=== PATIENT | female | born 1970 | race Caucasian/White ===

== ENCOUNTER 2018-11-10 15:03 | Inpatient (IN) | payer SELFPAY ==
[2018-11-10] VITALS (10 sets, daily range): BP systolic 108–143; BP diastolic 78–129
[~2018-11-10] VITALS: Ht 149.9 cm; Wt 87.2 kg
[~2018-11-10 15:03] MED LIST: ZOCOR
--- NOTE | 2018-11-10 15:12 | NUR ---
DR THOMPSON AT BEDSIDE FOR PATIENT EVAL. PAIENT TACHYCARDIC,TACHYPENIC, ORTHOPENIC, PATIENT PANTING,RESP RAPID,IRREGULAR AND LABORED. SKIN PALE AND DRY.
[2018-11-10] MEDS ORDERED: SODIUM CHLORIDE 0.9% 1000ML 1,000 ML IV STA ×2 (15:20→21:08)
[2018-11-10] MEDS ORDERED: ALBUTEROL/IPRATROPIUM 3 ML NEB ONE (15:25)
[2018-11-10] MEDS: ALBUTEROL SULF 0.083% NEB SOLN 3 ML NEB NEB NR ×2 (15:28→16:03)
[2018-11-10] MEDS ORDERED: ALBUTEROL/IPRATROPIUM 3 ML NEB NEB ONE (15:30)
[2018-11-10] MEDS ORDERED: MAGNESIUM SULFATE 2GM/50ML 50 ML IV ONE (15:30)
[2018-11-10 15:59] LABS: BASOPHILS # (AUTO) 0.1 (0.0-0.1); BASOPHILS % 0.6 % (0.0-1.0); EOSINOPHILS # (AUTO) 0.4 (0.0-0.4); HEMATOCRIT 40.2 % (34.2-44.1); HEMOGLOBIN 13.8 g/dL (12.0-16.0); LYMPHOCYTES # (AUTO) 1.9 (1.0-3.2); LYMPHOCYTES % 10.9 % (18.0-39.1); MEAN CORPUSCULAR HEMOGLOBIN 31.5 pg (28-32); MEAN CORPUSCULAR HGB CONC 34.3 g/dL (31-35); MEAN CORPUSCULAR VOLUME 91.8 fL (81-99); MONOCYTES # (AUTO) 0.5 (0.2-0.8); MONOCYTES % 2.6 % (4.4-11.3); NEUTROPHILS # (AUTO) 14.7 (2.1-6.9); NEUTROPHILS % 83.4 % (38.7-80.0); PLATELET COUNT 294 x10e3/uL (140-360); RED BLOOD COUNT 4.38 x10e6/uL (3.6-5.1); RED CELL DISTRIBUTION WIDTH 13.9 % (11.7-14.4)
[2018-11-10] MEDS ORDERED: LORAZEPAM INJ 2 MG/ML VIAL IV ONE ×2 (16:00→17:45)
[2018-11-10 16:16] LABS: ANION GAP 16.8 mmol/L (8-16); BLOOD UREA NITROGEN 11 mg/dL (7-26); BUN/CREATININE RATIO 11 (6-25); CALCIUM 9.4 mg/dL (8.4-10.2); CARBON DIOXIDE 20 mmol/L (22-29); CHLORIDE 105 mmol/L (98-107); CREATINE KINASE 345 IU/L (29-168); CREATININE, SERUM 0.96 mg/dL (0.57-1.11); EST GLOMERULAR FILTRATION RATE > 60 ML/MIN (60-); GLUCOSE 147 mg/dL (74-118); POTASSIUM 3.8 mmol/L (3.5-5.1); SODIUM 138 mmol/L (136-145)
--- NOTE | 2018-11-10 16:37 | NUR ---
PER WEAN PT OFF NRB AND PLACE PT ON NC 2 LPM; PT PLACED ON NC 2 LPM WITH NO ADVERSE REACTIONS
--- NOTE | 2018-11-10 16:53 | Diagnostic Imaging Report ---
A single frontal view of the chest. HISTORY: SOB, difficulty breathing COMPARISON: None available. DISCUSSION: Portable technique, limits sensitivity of the exam. Overlying monitoring leads. Tubes/Lines: None Lungs and pleura: Small opacities project at the periphery of the left lung base and the right infrahilar region. No definite pleural effusion or pneumothorax is identified. Heart and mediastinum: The cardiomediastinal silhouette appears unremarkable. Bones and soft tissues: Appear unremarkable, given this limited exam. IMPRESSION: 1. Bibasilar opacities, considerations include atelectasis, scarring, multifocal pneumonia, and/or aspiration in the appropriate settings. 2. Recommend short term follow up routine PA and lateral chest radiographs, in 6-8 weeks, to evaluate for resolution. Signed by: Dr. Oz Medrano D.O., M.M.M. on 11/10/2018 4:49 PM
[2018-11-10] MEDS ORDERED: AZITHROMYCIN 500MG/NS 250 ML 250 ML IV STA (17:02)
[2018-11-10] MEDS ORDERED: CEFTRIAXONE SOD 1 GM/NS 50 ML 50 ML IV SCH (17:15)
[2018-11-10] MEDS ORDERED: TERBUTALINE SULFATE 1 MG/ML VIAL SC NR (17:30)
[2018-11-10] MEDS: SODIUM CHLORIDE 0.9% 1000ML 1,000 ML IV SCH ×3 (17:35→21:54)
[2018-11-10] MEDS ORDERED: KETOROLAC TROMETHAMINE 30 MG/ML VIAL IV NR (17:45)
[2018-11-10] MEDS ORDERED: LORAZEPAM INJ 2 MG/ML VIAL IV NR (18:00)
[2018-11-10] MEDS ORDERED: AZITHROMYCIN 500MG/NS 250 ML 250 ML IV SCH (18:30)
[2018-11-10] MEDS: ALBUTEROL SULF 0.083% NEB SOLN 3 ML NEB NEB SCH ×2 (19:00→23:45)
[2018-11-10] MEDS: IPRATROPIUM BROMIDE 0.02% 2.5 ML NEB NEB SCH ×2 (19:00→23:45)
[2018-11-10 19:04] LABS: ABG HCO3 16 mmol/L (23-28); ABG PCO2 38 mmHg (41-51); ABG PH 7.23 (7.31-7.41); ABG PO2 111 mmHg (80-105)
[2018-11-10] MEDS: LORAZEPAM INJ 2 MG/ML VIAL IV PRN ×2 (19:19→20:40)
--- NOTE | 2018-11-10 19:23 | NUR ---
DR RIDLEY, DR CRAIG AND DR THOMPSON AT PT BEDSIDE
--- NOTE | 2018-11-10 19:24 | NUR ---
PER PATIENT SHE IS CLAUSTERPHOBIC. SHE IS JERKING OFF BIPAP AND TRYING TO JUMP OUT OF THE BED, GASPING FOR AIR. ORDERS FOR ATIVAN 1MG IV RECEIVED AND GIVEN. PATIENT SKIN TURNING PURPLE/BLUE ON CHEST. DR. CRAIG AND DR. RIDLEY AT BEDSIDE SPEAKING WITH FAMILY REGARDING INTUBATION
--- NOTE | 2018-11-10 19:27 | NUR ---
FAMILY TOGETHER WITH DR RIDLEY AND DR CRAIG CAME TO THE DECISION TO INTUBATE PT FOR RESPIRATORY SUPPORT. ETOMIDATE 20MG IV X1 GIVEN AT 193 SUCCINYLCHOLINE 100MG IV X 1 GIVEN AT 1932 TO RT AC 20G 7.5 SHILEY 24@ LIP IN AT 193. PT TOLERATED WELL DIPROVAN ORDERED FOR SEDATION. STARTED AT 10MCG/KG/HR. PT TRANSPORTED WITH RT ON PORTABLE VENT. PT STABLE NO S/S DISTRESS NOTED. RECEIVING NURSE RANJAN HOFFMANN AT BEDSIDE.
[2018-11-10] MEDS ORDERED: PROPOFOL IV EMULSION 10MG/ML 100 ML ONE (19:40)
[2018-11-10] MEDS ORDERED: SUCCINYLCHOLINE CHLORIDE 20 MG/ML 10ML VIAL IV NR (19:41)
[2018-11-10] MEDS ORDERED: ETOMIDATE 2 MG/ML 10 ML INJ IV STA (19:41)
[2018-11-10] MEDS: PROPOFOL IV EMULSION 10MG/ML 100 ML IV SCH ×2 (19:45→23:55)
--- OUTSIDE RECORDS SUMMARY | 2018-11-10 19:58 | XMS REPORT ---
Author Author [facility] Address Unknown Phone Unavailable Care Team Providers Care Take Off Man Name Role Phone Salazar THOMPSON Unavailable Unavailable Problems This patient has no known problems. Allergies, Adverse Reactions, Alerts This patient has no known allergies or adverse reactions. Medications This patient has no known medications. Results Test Description Test Time Test Comments Text Results Atomic Results Result Comments CHEST SINGLE (PORTABLE) 2018-11-10 16:47:00 [facility] [address] [address] Patient Name: KOFI PINEDA MR #: [id number] : 1970 Age/Sex: 48/F Req #: [id number] Adm Physician: Ordered by: CRISTINE THOMPSON MD Report #: [id number] Location: ER Room/Bed: Procedure: [id number] DX/CHEST SINGLE (PORTABLE) Exam Date: 11/10/18 Exam Time: 1540 REPORT STATUS: Signed A single frontal view of the chest. HISTORY: SOB, difficulty breathing COMPARISON: None available. DISCUSSION: Portable technique, limits sensitivity of the exam. Overlying monitoring leads. Tubes/Lines: None Lungs and pleura: Small opacities project at the periphery of the left lung base and the right infrahilar region. No definite pleural effusion or pneumothorax is identified. Heart and mediastinum: The cardiomediastinal silhouette appears unremarkable. Bones and soft tissues: Appear unremarkable, given this limited exam. IMPRESSION: 1. Bibasilar opacities, considerations include atelectasis, scarring, multifocal pneumonia, and/or aspiration in the appropriate settings. 2. Recommend short term follow up routine PA and lateral chest radiographs, in 6-8 weeks, to evaluate for resolution. Signed by: Dr. Bernardino Medrano D.O., M.M.M. on 11/10/2018 4:49 PM Dictated By: BERNARDINO MEDRANO DO [id number] Transcribed By: ADOLPH on 11/10/181648 COPY TO: CRISTINE THOMPSON MD
--- NOTE | 2018-11-10 20:15 | NUR ---
Received to 190 from ER. Placed on EKG, NBP & pulse ox for monitoring. Orally intubated with 7.5FR ETT secured at 24cm at the lip. Vent settings: Tv 450, FIO2 40%, PRVC 16 and PEEP 5. Very agitated. Sedation: Propofol titrated. NS @ 125ml/hr. Admission history, Initial Physical Assessment & Vaccine history completed.
--- NOTE | 2018-11-10 20:33 | Diagnostic Imaging Report ---
EXAMINATION: CHEST SINGLE (PORTABLE) INDICATION: ^post-intubation ^[id number] ^2004 COMPARISON: 11/10/2018 at 1536 hours FINDINGS: AP view TUBES and LINES: Status post intubation. The tip of endotracheal tube is approximately 2.4 cm above kahlil. LUNGS: Lungs are well inflated. Central vascular congestion and mild interstitial edema. There is a questionable 2.1 cm right base nodular density. PLEURA: No pleural effusion or pneumothorax. HEART AND MEDIASTINUM: The cardiomediastinal silhouette is unremarkable. BONES AND SOFT TISSUES: No acute osseous lesion. Soft tissues are unremarkable. UPPER ABDOMEN: No free air under the diaphragm. IMPRESSION: Status post intubation. Central vascular congestion and mild interstitial edema. Questionable 2.1 cm right base nodular density, which can be further evaluated with nonurgent chest CT. Signed by: Dr. Adrian Yan MD on 11/10/2018 8:30 PM
--- NOTE | 2018-11-10 20:35 | NUR ---
Ativan IV removed from Pixis and given to Tatum Rosenberg RN to administer per MD orders at her discretion.
[2018-11-10] MEDS ORDERED: [UNRECOGNIZED DRUG - REMARK] (20:44)
[2018-11-10] MEDS: CEFEPIME HCL 2 GM/SOD CHL 0.9% 100 ML BAG IV SCH (21:53)
[2018-11-10] MEDS: METHYLPREDNISOLONE SOD SUCC 125 MG/2ML VIAL IV SCH (22:00)
[2018-11-10] MEDS: VANCOMYCIN HCL 1GM/NS 250 ML BAG IV SCH (22:00)
--- NOTE | 2018-11-10 23:47 | History and Physical ---
CHIEF COMPLAINT: Worsening shortness of breath. HISTORY OF PRESENT ILLNESS: This is a 48-year-old white woman, who presents to [facility] with a 2-day history of worsening shortness of breath, cough, and chest congestion. The patient states she actually has been sick for the last 2-3 weeks, but seemed to improve after she finished a 5-day course of oral azithromycin and oral corticosteroids. However, according to the , she became progressively worse starting yesterday. Today in the Emergency Room, the patient was found to have in significant respiratory distress. White blood cell count was 17,500 with 83% segmenters. Blood gas in Emergency Room revealed a pH of 7.23, pCO2 of 38, and pO2 of 111. The patient's serum bicarbonate is 20. Chest x-ray performed in the Emergency Room revealed bibasilar opacities consistent with either atelectasis or multifocal pneumonia. The patient was given nebulized bronchodilators as well as methylprednisolone in the Emergency Room. Her respiratory status did only improve minimally, thus the decision was made to intubate the patient electively. REVIEW OF SYSTEMS: GENERAL: Weight has been stable. No fever or chills. HEENT: No headaches. No visual changes. CARDIOVASCULAR/RESPIRATORY: The patient has had worsening chest congestion and cough for the last 2-3 weeks, but became much worse in last 2 days. Denies any chest pain or tightness. GI: No nausea, vomiting, diarrhea. : No UTI symptoms. NEUROMUSCULAR: No limb weakness or numbness. ALLERGIES: LATEX. FAMILY HISTORY: Noncontributory. SOCIAL HISTORY: This woman is and lives with her . She drinks alcohol socially quite often according to the . She is a tobacco smoker. 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 HOME MEDICATIONS: 1. Simvastatin. 2. Recently completed a 5-day course of azithromycin. 3. Recently completed a 5-day course of oral corticosteroids. PAST MEDICAL HISTORY: 1. Tobacco abuse. 2. Chronic alcohol use. 3. Hyperlipidemia. 4. Mild obesity. SURGICAL HISTORY: section. PHYSICAL EXAMINATION: GENERAL: She is in obvious respiratory distress. She is somnolent, but arousable. VITAL SIGNS: She is breathing 40 breaths a minute, heart rate is 130, blood pressure is 123/93, temperature in the Emergency Room is 98.6, and oxygen saturation is 99% on BiPAP machine. INTEGUMENT: Skin is warm and dry. She has cyanosis on her chest area. She also has what appears to be telangiectases on her anterior chest. HEENT: Anicteric sclerae. Moist mucous membranes. NECK: Supple. No evidence of jugular venous distention. CARDIOVASCULAR: Distant heart sounds. Tachycardic rate and rhythm. LUNGS: The patient has crackles and rhonchi in the bibasilar area. ABDOMEN: Obese, benign. EXTREMITIES: No edema or deformity. NEUROLOGIC: Intact. IMPRESSION: 1. Acute respiratory failure, necessitating mechanical ventilation. 2. Sepsis secondary to bilateral pneumonia. 3. Bilateral pneumonia. 4. Asthma/chronic bronchitis exacerbation. 5. Tobacco abuse. PLAN: 1. Agree with elective endotracheal intubation. 2. Admit to intensive care unit. 3. Consult emt. 4. Continue nebulized bronchodilators and intravenous methylprednisolone. 5. Order blood cultures. 6. Continue intravenous antibiotics in the form of cefepime and vancomycin. I spent 75 minutes in the care of this intensive care unit patient. MD WALTER Wells/SONDRA /[id number] MTDD
[2018-11-11] VITALS (25 sets, daily range): BP systolic 90–130; BP diastolic 65–94
[2018-11-11] MEDS: ALBUTEROL SULF 0.083% NEB SOLN 3 ML NEB NEB SCH ×6 (02:40→22:45)
[2018-11-11] MEDS: LORAZEPAM INJ 2 MG/ML VIAL IV PRN (02:54)
--- NOTE | 2018-11-11 04:47 | NUR ---
OG tube inserted without difficulty. To LIS. Will confirm placement with Chest Xray in morning.
[2018-11-11] MEDS: METHYLPREDNISOLONE SOD SUCC 125 MG/2ML VIAL IV SCH (05:08)
[2018-11-11] MEDS: CEFEPIME HCL 2 GM/SOD CHL 0.9% 100 ML BAG IV SCH ×2 (05:08→14:00)
[2018-11-11] MEDS: SODIUM CHLORIDE 0.9% 1000ML 1,000 ML IV SCH ×3 (05:09→16:37)
[2018-11-11 05:39] LABS: BASOPHILS % 0.1 % (0.0-1.0); HEMOGLOBIN 11.3 g/dL (12.0-16.0); LYMPHOCYTES # (AUTO) 1.2 (1.0-3.2); LYMPHOCYTES % 6.5 % (18.0-39.1); MEAN CORPUSCULAR HEMOGLOBIN 31.7 pg (28-32); MEAN CORPUSCULAR HGB CONC 33.2 g/dL (31-35); MEAN CORPUSCULAR VOLUME 95.2 fL (81-99); MONOCYTES # (AUTO) 0.8 (0.2-0.8); MONOCYTES % 4.7 % (4.4-11.3); NEUTROPHILS # (AUTO) 15.8 (2.1-6.9); NEUTROPHILS % 87.7 % (38.7-80.0); PLATELET COUNT 191 x10e3/uL (140-360); RED BLOOD COUNT 3.57 x10e6/uL (3.6-5.1); RED CELL DISTRIBUTION WIDTH 14.3 % (11.7-14.4)
[2018-11-11 06:03] LABS: ALANINE AMINOTRANSFERASE 14 IU/L (0-55); ALBUMIN 3.3 g/dL (3.5-5.0); ALBUMIN/GLOBULIN RATIO 1.3 (0.8-2.0); ALKALINE PHOSPHATASE 39 IU/L (40-150); ANION GAP 13.3 mmol/L (8-16); BLOOD UREA NITROGEN 10 mg/dL (7-26); BUN/CREATININE RATIO 12 (6-25); CALCIUM 8.5 mg/dL (8.4-10.2); CARBON DIOXIDE 17 mmol/L (22-29); CHLORIDE 112 mmol/L (98-107); CREATININE, SERUM 0.83 mg/dL (0.57-1.11); EST GLOMERULAR FILTRATION RATE > 60 ML/MIN (60-); GLUCOSE 142 mg/dL (74-118); POTASSIUM 4.3 mmol/L (3.5-5.1); SODIUM 138 mmol/L (136-145)
[2018-11-11] MEDS: VANCOMYCIN HCL 1GM/NS 250 ML BAG IV SCH ×2 (06:04→18:08)
[2018-11-11] MEDS: PROPOFOL IV EMULSION 10MG/ML 100 ML IV SCH ×3 (06:36→21:14)
--- NOTE | 2018-11-11 06:52 | Diagnostic Imaging Report ---
EXAMINATION: CHEST SINGLE (PORTABLE) INDICATION: ^BILATERAL PNEUMONIA ^[id number] ^0530 ^Y COMPARISON: 11/10/2018 FINDINGS: AP view TUBES and LINES: Stable endotracheal tube. New nasogastric tube extends beyond the inferior margin of the film. LUNGS: Lungs are well inflated. Decreased previously seen airspace opacities. Unchanged right lower lung field nodular density. PLEURA: No pleural effusion or pneumothorax. HEART AND MEDIASTINUM: The cardiomediastinal silhouette is unremarkable. BONES AND SOFT TISSUES: No acute osseous lesion. Soft tissues are unremarkable. UPPER ABDOMEN: No free air under the diaphragm. IMPRESSION: Decreased previously seen bilateral airspace opacities. Unchanged right lower lung field nodular density. Signed by: Dr. Adrian Yan MD on 11/11/2018 6:49 AM
[2018-11-11] MEDS: IPRATROPIUM BROMIDE 0.02% 2.5 ML NEB NEB SCH ×3 (07:30→19:25)
[2018-11-11] MEDS ORDERED: FENTANYL CITRATE INJ 2,000 MCG in SODIUM CHLORIDE 0.9% 250ML 210 ML IV PRN (09:00)
[2018-11-11 09:21] LABS: ABG HCO3 19 mmol/L (23-28); ABG PCO2 33 mmHg (41-51); ABG PH 7.36 (7.31-7.41); ABG PO2 135 mmHg (80-105)
[2018-11-11] MEDS: FAMOTIDINE 20 MG/2 ML VIAL IV SCH (09:24)
--- NOTE | 2018-11-11 12:00 | NUR ---
Called Dr. Howe to obtain TF order.
--- NOTE | 2018-11-11 12:55 | NUR ---
Nutrition Intervention Note RD Recommendation(s) for Physician: -With propofol at 22.5mL/hr (594kcal/day), rec to initiate continuous TF with Vital HP @10mL/hr, advance as tolerated to 25mL/hr (600kcal). -Rec to increase TF to goal rate of 45mL/hr when propofol is turned down to 10mL/hr -Rec 50mL water flushes q 4hr; additional per MD discretion -Check daily labs, weight, and GI tolerance Plan of Care: RD following, monitoring for tolerance and adequacy, TF rec Nutrition reason for involvement: New tube feeding RD Assessment 11/11 48yo F, who was admitted for SOB. CXR revealed PNA. Pt was discussed during AM rounds. Intubated and ventilated. Propofol at 22.5mL/hr and IVF at 125mL/hr during my visit. 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 Verified height and weight with daughter. Per RN, plan to extubate tomorrow and OGT tube was placed to start feeding today. Called Dr. Howe and received verbal order for tube feeding. Will continue to monitor and follow. Principal Problems/Diagnoses: 1. Acute respiratory failure, necessitating mechanical ventilation. 2. Sepsis secondary to bilateral pneumonia. 3. Bilateral pneumonia. 4. Asthma/chronic bronchitis exacerbation. PMH: 1. Tobacco abuse. 2. Chronic alcohol use. 3. Hyperlipidemia. 4. Mild obesity. GI: OGT present Skin: No pressure wound noted Labs: (11/11) Glucose 142 H Meds: pepcid, propofol, abx, NaCl, abx Ht: 59in Wt: 172lb BMI: 34.7kg/m2 IBW: 98lb Malnutrition Evaluation (11/11/2018) The patient does not meet criteria for a specified degree of malnutrition at this time. Will re-evaluate at follow-up as appropriate. Nutrition Prescription (Diet Order): Vital HP @25mL/hr Estimated Nutritional Needs: Calories: 858 1092kcal(11-14kcal/kg/d) Weight used : CBW Protein: 90 112g(2-2.5g/kg/d) Weight used: IBW Diet Adequacy: Not meeting calorie needs, Not meeting protein needs Diet Education Needs Assessment: Diet education indicated, but patient not appropriate for education at this time. Nutrition Care Level: mod Nutrition Diagnosis: Inadequate oral intake related to current medical status (intubated/ ventilated) as evidenced by pt requiring EN as main source of nutrition. Goal: Patient will meet 75-100% of estimated needs by follow up Progress: N/A Interventions: Composition, Rate, Route, IVF Monitoring/Evaluation: Total energy intake, Total protein intake, Formula/Solution, IVF, Weight change, Labs, Gastric tolerance Signed: Magdalena Kirkland MS, RD, LD
--- NOTE | 2018-11-11 13:57 | Diagnostic Imaging Report ---
CT of the chest, without contrast, 11/11/2018. History: Pneumonia. Comparison: Chest x-ray from earlier today. Technique: Multidetector CT scanning of the chest was performed from the level of the apices to the upper abdomen without contrast. Coronal and sagittal multiplanar reformations were obtained. RADIATION DOSE: Total DLP: 488 mGy*cm Dose modulation, iterative reconstruction, and/or weight based adjustment of the mA/kV was utilized to reduce the radiation dose to as low as reasonably achievable. Discussion: Evaluation is limited without IV contrast. Chest: ET tube is present terminating 2 cm above the kahlil. NG tube terminates within the stomach. The heart, aorta, and pulmonary vessels are normal in size. The thyroid is unremarkable. There is no gross evidence of adenopathy. Patchy consolidative and ground glass pulmonary opacities are present in both upper lobes and right middle lobe. There is no evidence of suspicious mass or pleural effusion. Limited evaluation of the upper abdomen shows normal adrenal glands. Bones and soft tissues: No acute abnormality. IMPRESSION: Patchy bilateral pulmonary opacities suggestive of resolving pneumonia. Signed by: Trip Redding on 11/11/2018 1:54 PM
[2018-11-11] MEDS: METHYLPREDNISOLONE SOD SUCC 40 MG/ML VIAL 1ML IV SCH ×2 (14:00→22:46)
[2018-11-11] MEDS ORDERED: METHYLPREDNISOLONE SOD SUCC 125 MG/2ML VIAL IV SCH (14:00)
--- NOTE | 2018-11-11 16:41 | Consultation ---
DATE OF CONSULTATION: Pulmonary consultation REASON FOR CONSULT: ICU management. HISTORY OF PRESENT ILLNESS: Ms. Sin is a 48-year-old female who presented to the emergency room with a complaint of shortness of breath. The patient has been diagnosed with COPD and was on Z-Oscar and oral corticosteroids per the chart. Currently, I am not able to get any history from the patient as she is sedated. She progressively became short of breath. White cell count jumped to 17,000 with 83% bands. She was short of breath in the emergency room and required elective intubation. Her initial ABG shows pH of 7.23, pCO2 of 38, and PO2 of 111. I have reviewed the chest x-ray films. It is showing a few areas of increased congestions or areas of consolidation, but no clear-cut infiltrate and the repeat x-ray today is showing decrease in the bibasilar opacities. She received vancomycin, Solu-Medrol, and cefepime in the emergency room. REVIEW OF SYSTEMS: Unable to elicit any as the patient is intubated. PAST MEDICAL HISTORY: Hyperlipidemia and obesity. PAST SURGICAL HISTORY: Unknown. FAMILY AND SOCIAL HISTORY: She is . Questionable alcohol use. However, she is a regular smoker. 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 PHYSICAL EXAMINATION: VITAL SIGNS: Temperature 99.1, pulse of 96, blood pressure 114/78, and respiratory rate is 18 to 20. HEENT: Head is atraumatic, normocephalic. NECK: Supple. CHEST: Wheezing bilaterally. HEART: S1, S2 audible. ABDOMEN: Soft, nontender, nondistended. EXTREMITIES: No pedal edema. NEUROLOGIC: Sedated, intubated. LABS: PH of 7.23, pCO2 of 38, and PO2 of 111. Chemistry; sodium 138, potassium 4.3, chloride 112, BUN 10, and creatinine 0.83. Lactic acid when she came in was 41.9 and today is 33.6, still on the higher side. She has not required any vasopressors so far. ASSESSMENT: Ms. Sin is a 48-year-old female came in with shortness of breath and wheezing, question of chronic obstructive pulmonary disease exacerbation versus pneumonia. However, the patient's chest x-ray is improved from yesterday to today after positive-pressure ventilation that can be a contribution from heart failure, however, seems unlikely. PLAN: 1. I agree with the IV antibiotics as ordered by Dr. Yates. We will reduce the dose of Solu-Medrol and check echocardiogram to rule out any cardiac dysfunction. 2. CT chest without contrast. 3. Central line and possibly the patient will drop blood pressure and may get worse if the pneumonia is getting worse. Currently, she is on FiO2 of 40% and oxygenating very well. I will do ABG. 4. Start the patient on DVT prophylaxis and GI prophylaxis. We will start tube feedings. Recheck lactate. Critical care time spent 50 minutes. MD FALGUNI Petersen/SONDRA /[id number]
[2018-11-11] MEDS: ENOXAPARIN SOD INJ 40 MG/0.4 ML SYR SC SCH (17:00)
[2018-11-11] MEDS ORDERED: IOPAMIDOL 370 MG/ML 200 ML INFUS..BTL INJ ONE (17:12)
[2018-11-11] MEDS ORDERED: SODIUM CHLORIDE 0.9% 50ML 50 ML ONE (17:12)
--- NOTE | 2018-11-11 17:41 | Diagnostic Imaging Report ---
Exam: Chest with contrast PE protocol TECHNIQUE: CT scan of the chest WITH intravenous contrast, using PE protocol. The chest was scanned utilizing a multidetector helical scanner from the lung apex through the level of the adrenal glands after the IV administration of 100 cc of . Thin section reconstructions were obtained with special concentration on the pulmonary arteries. Coronal and sagittal reformations were obtained. COMPARISON: Chest CT without dated 11/11/2018 INDICATION: Rule out pulmonary embolism DISCUSSION: Lungs: ET tube is present terminating 2 cm above the kahlil. NG tube terminates within the stomach. The heart, aorta, and pulmonary vessels are normal in size. The thyroid is unremarkable. There is no gross evidence of adenopathy. Patchy consolidative and ground glass pulmonary opacities are present in both upper lobes and right middle lobe. Airways: ET tube tip terminates approximately 2 cm superior to the kahlil. NG tube in the stomach. Pleura: There is no evidence of pleural effusion or pneumothorax. Heart and mediastinum: The heart and the mediastinum are normal. No mediastinal or hilar lymphadenopathy. Abdomen: The visualized parts of the upper abdomen are unremarkable. Bones and soft tissues: No acute bony abnormalities. IMPRESSION: 1. No pulmonary embolism. 2. Stable findings from recent prior chest CT of bilateral patchy pulmonary parenchymal opacities which may represent resolving pneumonia Signed by: Wilian Vera MD on 11/11/2018 5:38 PM
[2018-11-11] MEDS: CEFEPIME 1GM/NS 0.9% 50 ML 50 ML IV SCH (22:46)
[2018-11-12] VITALS (24 sets, daily range): BP systolic 100–163; BP diastolic 68–122
[2018-11-12] MEDS: PROPOFOL IV EMULSION 10MG/ML 100 ML IV SCH ×3 (00:52→04:58)
[2018-11-12] MEDS: ALBUTEROL SULF 0.083% NEB SOLN 3 ML NEB NEB SCH ×6 (03:02→23:50)
[2018-11-12] MEDS: IPRATROPIUM BROMIDE 0.02% 2.5 ML NEB NEB SCH ×5 (03:02→23:50)
[2018-11-12] MEDS: CEFEPIME 1GM/NS 0.9% 50 ML 50 ML IV SCH ×3 (04:58→21:40)
[2018-11-12] MEDS: METHYLPREDNISOLONE SOD SUCC 40 MG/ML VIAL 1ML IV SCH ×3 (04:58→21:40)
[2018-11-12] MEDS: VANCOMYCIN HCL 1GM/NS 250 ML BAG IV SCH ×2 (05:41→18:30)
[2018-11-12] MEDS: SODIUM CHLORIDE 0.9% 1000ML 1,000 ML IV SCH (08:04)
[2018-11-12 08:35] LABS: BASOPHILS % 0.1 % (0.0-1.0); HEMATOCRIT 35.1 % (34.2-44.1); HEMOGLOBIN 11.7 g/dL (12.0-16.0); LYMPHOCYTES # (AUTO) 1.8 (1.0-3.2); LYMPHOCYTES % 8.8 % (18.0-39.1); MEAN CORPUSCULAR HEMOGLOBIN 32.1 pg (28-32); MEAN CORPUSCULAR HGB CONC 33.3 g/dL (31-35); MEAN CORPUSCULAR VOLUME 96.4 fL (81-99); MONOCYTES # (AUTO) 1.2 (0.2-0.8); MONOCYTES % 5.7 % (4.4-11.3); NEUTROPHILS # (AUTO) 17.3 (2.1-6.9); NEUTROPHILS % 83.4 % (38.7-80.0); PLATELET COUNT 202 x10e3/uL (140-360); RED BLOOD COUNT 3.64 x10e6/uL (3.6-5.1); RED CELL DISTRIBUTION WIDTH 14.6 % (11.7-14.4)
[2018-11-12 08:47] LABS: ANION GAP 10.4 mmol/L (8-16); BLOOD UREA NITROGEN 19 mg/dL (7-26); BUN/CREATININE RATIO 23 (6-25); CALCIUM 8.6 mg/dL (8.4-10.2); CARBON DIOXIDE 20 mmol/L (22-29); CHLORIDE 110 mmol/L (98-107); CREATININE, SERUM 0.81 mg/dL (0.57-1.11); EST GLOMERULAR FILTRATION RATE > 60 ML/MIN (60-); GLUCOSE 123 mg/dL (74-118); POTASSIUM 4.4 mmol/L (3.5-5.1); SODIUM 136 mmol/L (136-145)
[2018-11-12] MEDS: FAMOTIDINE 20 MG/2 ML VIAL IV SCH (09:00)
[2018-11-12] MEDS ORDERED: DEXMEDETOMIDINE HCL 200 MCG in SODIUM CHLORIDE 0.9% 50ML 48 ML IV PRN (09:15)
[2018-11-12] MEDS: CLONIDINE HCL 0.1 MG/24 HR 1 EA PATCH TOP SCH (09:30)
--- NOTE | 2018-11-12 10:12 | Diagnostic Imaging Report ---
EXAMINATION: CHEST SINGLE (PORTABLE) INDICATION: Follow-up pneumonia. COMPARISON: CT chest 11/08/2018 and chest radiograph 11/11/2018. FINDINGS: TUBES and LINES: ET tube terminates 4.5 cm above the kahlil. An enteric tube courses into the stomach, the tip is not seen. LUNGS: Lungs are moderately inflated. Mild bilateral perihilar opacities. No new consolidation. PLEURA: No pleural effusion or pneumothorax. HEART AND MEDIASTINUM: The cardiomediastinal silhouette is unremarkable. BONES AND SOFT TISSUES: No acute osseous abnormality. UPPER ABDOMEN: No free air under the diaphragm. IMPRESSION: Mild patchy bilateral opacities, consistent with pneumonia noted on prior studies. No new consolidation. Lines and tubes as above. No evidence of pneumothorax. Signed by: Dr. Maribel Hampton MD on 11/12/2018 10:09 AM
[2018-11-12] MEDS ORDERED: FUROSEMIDE INJ 10 MG/ML 4 ML VIAL IV SCH (10:30)
[2018-11-12 11:01] LABS: ABG HCO3 20 mmol/L (23-28); ABG PCO2 38 mmHg (41-51); ABG PH 7.33 (7.31-7.41); ABG PO2 102 mmHg (80-105)
[2018-11-12] MEDS: ENOXAPARIN SOD INJ 40 MG/0.4 ML SYR SC SCH (17:56)
[2018-11-12] MEDS: ACETAMINOPHEN 325 MG TAB PO PRN (20:41)
[2018-11-13] VITALS (25 sets, daily range): BP systolic 119–147; BP diastolic 59–97
[2018-11-13] MEDS: ALBUTEROL SULF 0.083% NEB SOLN 3 ML NEB NEB SCH ×6 (00:17→19:34)
[2018-11-13] MEDS: SODIUM CHLORIDE 0.9% 1000ML 1,000 ML IV SCH (00:57)
[2018-11-13] MEDS: METHYLPREDNISOLONE SOD SUCC 40 MG/ML VIAL 1ML IV SCH ×3 (05:17→22:18)
[2018-11-13] MEDS: CEFEPIME 1GM/NS 0.9% 50 ML 50 ML IV SCH ×3 (05:17→22:17)
[2018-11-13] MEDS: VANCOMYCIN HCL 1GM/NS 250 ML BAG IV SCH (06:02)
[2018-11-13] MEDS: IPRATROPIUM BROMIDE 0.02% 2.5 ML NEB NEB SCH ×3 (07:15→19:34)
[2018-11-13] MEDS: FAMOTIDINE 20 MG/2 ML VIAL IV SCH (08:34)
[2018-11-13] MEDS: ACETAMINOPHEN 325 MG TAB PO PRN (08:34)
--- NOTE | 2018-11-13 12:07 | NUR ---
GAVE PACKET OF INFORMATION WITH COMMUNITY [employer]OURCES FOR ASSISTANCE WITH LOW TO NO INCOME TO PATIENT. RESOURCES THAT PATIENT MAY BE ABLE TO FOLLOW UP UPON DISCHARGE. PT EDUCATED ON EACH RESOURCE AND UNDERSTANDING HOW TO FOLLOW UP TO SEE IF QUALIFIED FOR EACH RESOURCE.
[2018-11-13] MEDS ORDERED: SUCCINYLCHOLINE CHLORIDE 20 MG/ML 10ML VIAL ONE (12:27)
[2018-11-13] MEDS ORDERED: ETOMIDATE 40 MG/ 20ML VIAL IV ONE (12:27)
--- NOTE | 2018-11-13 12:35 | NUR ---
ASSESSMENT: Spiritual Distress Referred by SW. Pt worried about being able to attend nursing program. 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 Pt is worried about her illness possibly preventing her attendance in the program which she has "worked hard for." Pt expressed emotions thru words and tears. Pt states helping others is important to her. Pt's at bedside. Pt states prayer is important to her. Intervention: Provided empathic listening. Facilitated conversation about spirituality. Provided prayer. Outcome: Pt and expressed appreciation for support. Will follow as able. FELIPE SHAFFER Orthopedic Dentist Spiritual Care Department O: [phone] Pager: [phone] ([phone] number calling from)
[2018-11-13] MEDS ORDERED: ONDANSETRON HCL INJ 2MG/ML 2ML 2 MG/ML VIAL ONE (12:53)
[2018-11-13] MEDS: ONDANSETRON HCL INJ 2MG/ML 2ML 2 MG/ML VIAL IV PRN (13:04)
--- NOTE | 2018-11-13 13:13 | NUR ---
WOUND CARE PUP SCREEN Harpreet Score: 17 PUP: Moderate Pup LOS: 2 days Age: 48 Alternating Pressure Air Mattress to Current Weight HOB = 30 Degrees Patient Position: Left PATIENT VISIT / SKIN CHECK: No Pressure Ulcers Identified. Able to turn self. RECOMMENDATION: - Continue Moderate PUP Protocol Addendum: 11/13/18 at 1315 by Earl Crane RN Amended: Links added.
[2018-11-13] MEDS: TRAMADOL/APAP 37.5MG-325MG TAB PO PRN ×2 (13:15→19:20)
[2018-11-13] MEDS: VANCOMYCIN 1GM/NS 250 ML 250 ML IV SCH (18:05)
[2018-11-13] MEDS: ENOXAPARIN SOD INJ 40 MG/0.4 ML SYR SC SCH (18:05)
[2018-11-13] MEDS: GUAIFENESIN/CODEINE 10 ML CUP PO PRN (20:16)
[2018-11-14] VITALS (16 sets, daily range): BP systolic 112–150; BP diastolic 69–110
[2018-11-14] MEDS: IPRATROPIUM BROMIDE 0.02% 2.5 ML NEB NEB SCH ×4 (00:17→20:45)
[2018-11-14] MEDS: SODIUM CHLORIDE 0.9% 1000ML 1,000 ML IV SCH (01:38)
[2018-11-14] MEDS: GUAIFENESIN/CODEINE 10 ML CUP PO PRN ×3 (01:39→21:32)
[2018-11-14 04:54] LABS: BASOPHILS % 0.1 % (0.0-1.0); HEMOGLOBIN 10.4 g/dL (12.0-16.0); LYMPHOCYTES # (AUTO) 1.9 (1.0-3.2); LYMPHOCYTES % 13.5 % (18.0-39.1); MEAN CORPUSCULAR HEMOGLOBIN 31.3 pg (28-32); MEAN CORPUSCULAR HGB CONC 32.5 g/dL (31-35); MEAN CORPUSCULAR VOLUME 96.4 fL (81-99); MONOCYTES # (AUTO) 1.2 (0.2-0.8); MONOCYTES % 8.5 % (4.4-11.3); NEUTROPHILS # (AUTO) 10.6 (2.1-6.9); NEUTROPHILS % 76.2 % (38.7-80.0); PLATELET COUNT 166 x10e3/uL (140-360); RED BLOOD COUNT 3.32 x10e6/uL (3.6-5.1)
[2018-11-14 05:11] LABS: ANION GAP 9.4 mmol/L (8-16); BLOOD UREA NITROGEN 26 mg/dL (7-26); BUN/CREATININE RATIO 38 (6-25); CALCIUM 8.4 mg/dL (8.4-10.2); CARBON DIOXIDE 22 mmol/L (22-29); CHLORIDE 107 mmol/L (98-107); CREATININE, SERUM 0.69 mg/dL (0.57-1.11); EST GLOMERULAR FILTRATION RATE > 60 ML/MIN (60-); GLUCOSE 134 mg/dL (74-118); POTASSIUM 4.4 mmol/L (3.5-5.1); SODIUM 134 mmol/L (136-145)
[2018-11-14] MEDS: ALBUTEROL SULF 0.083% NEB SOLN 3 ML NEB NEB SCH ×4 (06:00→20:45)
[2018-11-14] MEDS: CEFEPIME 1GM/NS 0.9% 50 ML 50 ML IV SCH ×3 (06:19→21:56)
[2018-11-14] MEDS: METHYLPREDNISOLONE SOD SUCC 40 MG/ML VIAL 1ML IV SCH ×3 (06:20→21:56)
--- NOTE | 2018-11-14 07:00 | NUR ---
Patient up OOB to chair; ashlee care provided and linens changed.
[2018-11-14] MEDS: VANCOMYCIN 1GM/NS 250 ML 250 ML IV SCH ×2 (07:04→17:39)
[2018-11-14] MEDS: ONDANSETRON HCL INJ 2MG/ML 2ML 2 MG/ML VIAL IV PRN (07:23)
[2018-11-14] MEDS: TRAMADOL/APAP 37.5MG-325MG TAB PO PRN ×3 (07:23→22:08)
[2018-11-14] MEDS: FAMOTIDINE 20 MG/2 ML VIAL IV SCH (07:23)
--- NOTE | 2018-11-14 09:41 | NUR ---
Dr Howe to bedside; orders rec'd. Okay to move to Med Surg from a pulmonary stand point.
[2018-11-14] MEDS ORDERED: FUROSEMIDE INJ 10 MG/ML 2 ML VIAL IV ONE (11:00)
--- NOTE | 2018-11-14 11:25 | NUR ---
Per kimberli Montano for patient to transfer to Med Surg with telemetry.
--- NOTE | 2018-11-14 12:20 | NUR ---
RECEIVED REPORT FROM SHUN HICKS
--- NOTE | 2018-11-14 12:24 | NUR ---
Report called to SHUN Castelan for Room 208.
--- NOTE | 2018-11-14 13:35 | NUR ---
PT ARRIVED TO UNIT VIA HOSPITAL BED. PT IS ALERT, NO S/S OF DISTRESS. O2 2L VIA NC IS APPLIED. IV IS ASYMPTOMATIC, CLEAN AND DRY. PT IS EAGER TO PERFORM ADL'S, EXPRESSES WANT TO TAKE A SHOWER. WALKER AND O2 EXTENSION TUBING PROVIDED FOR PT. PT NEEDS ASSISTANCE WHEN AMBULATING WITH WALKER, PT IS SOB AND EXPERIENCES DIZZINESS UPON FIRST STANDING UP.
--- NOTE | 2018-11-14 13:42 | NUR ---
Nutrition Intervention Note RD Recommendation(s) for Physician: -Continue current diet as ordered Plan of Care: RD following, monitoring for tolerance and adequacy Nutrition reason for involvement: Follow up RD Assessment 11/14 Post extubation day 2. Visited pt in the room. Pt reported fair appetite. Nausea has improved with medication. No vomiting episode reported. Pt was complaining of sore throat after extubation but able to tolerate current diet texture. No chewing difficulty noted. Will continue to monitor and follow. 11/11 48yo F, who was admitted for SOB. CXR revealed PNA. Pt was discussed during AM rounds. Intubated and ventilated. Propofol at 22.5mL/hr and IVF at 125mL/hr during my visit. 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 Verified height and weight with daughter. Per RN, plan to extubate tomorrow and OGT tube was placed to start feeding today. Called Dr. Howe and received verbal order for tube feeding. Will continue to monitor and follow. Principal Problems/Diagnoses: 1. Acute respiratory failure, necessitating mechanical ventilation. 2. Sepsis secondary to bilateral pneumonia. 3. Bilateral pneumonia. 4. Asthma/chronic bronchitis exacerbation. PMH: 1. Tobacco abuse. 2. Chronic alcohol use. 3. Hyperlipidemia. 4. Mild obesity. GI: WNL Skin: No pressure wound noted Labs: (11/14) Na 134 L, Glucose 134 H (11/11) Glucose 142 H Meds: solu-medrol, zofran, pepcid, abx Ht: 59in Wt: 172lb; 192.19lb BMI: 34.7kg/m2 IBW: 98lb Malnutrition Evaluation (11/11/2018) The patient does not meet criteria for a specified degree of malnutrition at this time. Will re-evaluate at follow-up as appropriate. Nutrition Prescription (Diet Order): Regular diet Estimated Nutritional Needs: Calories: 1125 - 1350kcal (25-30kcal/kg/d) Weight used: IBW Protein: 68 - 113g (1.5-2.5g/kg/d) Weight used: IBW Diet Adequacy: meeting calorie needs, meeting protein needs Diet Education Needs Assessment: Diet education indicated, but patient not appropriate for education at this time. Nutrition Care Level: low Nutrition Diagnosis: No nutrition diagnosis at this time. Goal: Patient will meet 75-100% of estimated needs by follow up Progress: Goal met Interventions: General healthful diet Monitoring/Evaluation: Total energy intake, Total protein intake, diet, Weight change Signed: Magdalena Kirkland MS, RD, LD
--- NOTE | 2018-11-14 13:50 | NUR ---
PT AMBULATED TO THE BATHROOM AND VOIDED. THIS IS THE FIRST VOID POST REMOVAL OF JAMIL
[2018-11-14] MEDS ORDERED: SODIUM CHLORIDE 0.9% 250ML 250 ML ONE (17:29)
[2018-11-14] MEDS: ENOXAPARIN SOD INJ 40 MG/0.4 ML SYR SC SCH (17:30)
--- NOTE | 2018-11-14 19:09 | NUR ---
received patient, aaox3, resting in bed. family member at bedside. no needs voiced at this time. bed locked and in lowest position, call light within easy reach.
[2018-11-15] VITALS (8 sets, daily range): BP systolic 118–152; BP diastolic 68–86
[2018-11-15] MEDS: ALBUTEROL SULF 0.083% NEB SOLN 3 ML NEB NEB SCH ×7 (00:30→23:55)
[2018-11-15] MEDS: IPRATROPIUM BROMIDE 0.02% 2.5 ML NEB NEB SCH ×4 (00:30→19:41)
[2018-11-15] MEDS: CEFEPIME 1GM/NS 0.9% 50 ML 50 ML IV SCH ×3 (05:38→21:34)
[2018-11-15] MEDS: METHYLPREDNISOLONE SOD SUCC 40 MG/ML VIAL 1ML IV SCH ×3 (05:38→21:34)
[2018-11-15] MEDS: VANCOMYCIN 1GM/NS 250 ML 250 ML IV SCH ×2 (06:19→19:36)
--- NOTE | 2018-11-15 07:00 | NUR ---
BEDSIDE SHIFT REPORT RECEIVED FROM FEEDER DRIVER RN. PT DENIES NEEDS AT THIS TIME.
[2018-11-15] MEDS: TRAMADOL/APAP 37.5MG-325MG TAB PO PRN ×2 (08:04→20:40)
[2018-11-15] MEDS: FAMOTIDINE 20 MG/2 ML VIAL IV SCH (08:11)
[2018-11-15] MEDS: GUAIFENESIN/CODEINE 10 ML CUP PO PRN ×3 (09:05→20:40)
--- NOTE | 2018-11-15 13:12 | NUR ---
SMOKING CESSATION EDUCATION GIVEN TO THE PT. PT VERBALIZED UNDERSTANDING.
[2018-11-15] MEDS: ENOXAPARIN SOD INJ 40 MG/0.4 ML SYR SC SCH (17:53)
--- NOTE | 2018-11-15 18:45 | NUR ---
CALLED DR SIU OFFICE AND REPORTED PT VANC TROUGH LEVEL 12.9.
--- NOTE | 2018-11-15 19:00 | NUR ---
BEDSIDE SHIFT REPORT GIVEN TO THE CARDIAC CATH TECHNOLOGIST RN. PT DENIED FURTHER NEEDS.
--- NOTE | 2018-11-15 19:10 | NUR ---
received patient aaox3, sitting in recliner in stable condition. breathing even and unlabored. no needs voiced at this time. call light within reach. will continue to monitor the patient.
--- NOTE | 2018-11-15 19:15 | NUR ---
CATRACHO TO ADMINISTER VANCOMYCIN PER DR. MCCONNELL.
--- NOTE | 2018-11-15 19:19 | NUR ---
spoke with dr. lopez, color television console monitor for dr. leggett, notified of vanco. trough of 12.9. okay to give 1800 dose now, and continue with q12 schedule of vanco.
[2018-11-16] VITALS (8 sets, daily range): BP systolic 129–148; BP diastolic 70–97
[2018-11-16] MEDS: IPRATROPIUM BROMIDE 0.02% 2.5 ML NEB NEB SCH ×4 (00:19→19:40)
[2018-11-16] MEDS: ALBUTEROL SULF 0.083% NEB SOLN 3 ML NEB NEB SCH ×6 (03:10→23:30)
[2018-11-16] MEDS: TRAMADOL/APAP 37.5MG-325MG TAB PO PRN ×3 (03:53→19:40)
[2018-11-16] MEDS: GUAIFENESIN/CODEINE 10 ML CUP PO PRN ×3 (03:53→19:40)
[2018-11-16] MEDS: CEFEPIME 1GM/NS 0.9% 50 ML 50 ML IV SCH ×3 (05:30→21:13)
[2018-11-16] MEDS: METHYLPREDNISOLONE SOD SUCC 40 MG/ML VIAL 1ML IV SCH ×2 (05:30→17:50)
[2018-11-16] MEDS: VANCOMYCIN 1GM/NS 250 ML 250 ML IV SCH ×2 (05:59→19:00)
--- NOTE | 2018-11-16 07:00 | NUR ---
BEDSIDE SHIFT RECEIVED FROM RN BIRTHING RN. PT DENIES NEEDS AT THIS TIME.
[2018-11-16] MEDS: FAMOTIDINE 20 MG/2 ML VIAL IV SCH (08:09)
[2018-11-16] MEDS: NICOTINE 7 MG PATCH TOP SCH (12:43)
[2018-11-16 16:42] LABS: BASOPHILS # (AUTO) 0.1 (0.0-0.1); BASOPHILS % 0.5 % (0.0-1.0); EOSINOPHILS % 0.2 % (0.0-6.0); HEMATOCRIT 34.9 % (34.2-44.1); HEMOGLOBIN 11.9 g/dL (12.0-16.0); LYMPHOCYTES # (AUTO) 3.2 (1.0-3.2); LYMPHOCYTES % 16.7 % (18.0-39.1); MEAN CORPUSCULAR HEMOGLOBIN 31.5 pg (28-32); MEAN CORPUSCULAR HGB CONC 34.1 g/dL (31-35); MEAN CORPUSCULAR VOLUME 92.3 fL (81-99); MONOCYTES # (AUTO) 2.8 (0.2-0.8); MONOCYTES % 14.8 % (4.4-11.3); NEUTROPHILS % 62.7 % (38.7-80.0); PLATELET COUNT 189 x10e3/uL (140-360); RED BLOOD COUNT 3.78 x10e6/uL (3.6-5.1); RED CELL DISTRIBUTION WIDTH 13.7 % (11.7-14.4)
[2018-11-16 17:36] LABS: BAND NEUTROPHILS % (MANUAL) 1 %; LYMPHOCYTES % (MANUAL) 24 % (19-48); MONOCYTES % (MANUAL) 10 % (3.4-9.0); MYELOCYTES % (MANUAL) 2 % (0-0); NEUTROPHILS % (MANUAL) 63 % (40-74); PLATELET ESTIMATE ADEQUATE; PLATELET MORPHOLOGY COMMENT NORMAL; RBC MORPHOLOGY COMMENT NORMAL
[2018-11-16] MEDS: ENOXAPARIN SOD INJ 40 MG/0.4 ML SYR SC SCH (17:50)
[2018-11-16] MEDS: ONDANSETRON HCL INJ 2MG/ML 2ML 2 MG/ML VIAL IV PRN (17:51)
--- NOTE | 2018-11-16 19:00 | NUR ---
BEDSIDE SHIFT REPORT GIVEN TO THE LIFE ADVISOR RN. PT DENIED FURTHER NEEDS.
--- NOTE | 2018-11-16 19:04 | Progress Note ---
DATE: Internal Medicine Progress Note SUBJECTIVE: The patient is feeling better. PHYSICAL EXAMINATION: VITAL SIGNS: Blood pressure 139/97, temperature 98.3 degrees Fahrenheit, heart rate 78 per minute, respiratory rate 20 per minute, and oxygen saturation 99%. HEART: Showed regular rhythm. Normal S1, S2 sound. LUNGS: Decreased breath sounds bilaterally. ABDOMEN: Soft. EXTREMITIES: No evidence of cyanosis or hematoma. LABORATORY DATA: On the blood work, we have BMP; sodium 134, potassium 4.4, chloride 107, CO2 of 22, BUN 26, creatinine 0.69, and glucose 134. On the CBC; white blood count is elevated at 13,900, hemoglobin 10.4, hematocrit 32.0, and platelet count 156,000. AST 21, ALT 14, total bilirubin 0.4, and alkaline phosphatase 39. FINAL IMPRESSION: 1. Chronic obstructive pulmonary disease exacerbation. 2. Lobar pneumonia. 3. Acute respiratory failure. 4. Obesity. 5. Acute renal failure. 6. Anemia. PLAN OF TREATMENT: 1. Continue albuterol and Atrovent q.4-6 hours. 2. Continue cefepime 2 g IV q.8 hours. 3. Continue vancomycin 1 g IV twice a day. 4. Tylenol 650 mg q.6 hours as needed. 5. Solu-Medrol 20 mg IV twice a day. 6. Lovenox 40 mg subcutaneous daily for DVT prophylaxis. 7. Zofran 4 mg IV q.4 hours as needed. 8. NicoDerm patch 7 mg daily. 9. Pepcid 20 mg daily. 10. Ultracet one tablet q.6 hours as needed for pain. 11. Clonidine one patch 0.1 mg every seven days. 12. Guaifenesin with codeine 5 mL q.4 hours as needed. I discussed the case with the patient. Labs have been reviewed with marketing regional consultant and reports have been reviewed. Time spent 45 minutes. MD SERA Tran/SONDRA /[id number]
[2018-11-17] VITALS (8 sets, daily range): BP systolic 126–144; BP diastolic 73–96
[2018-11-17] MEDS: ALBUTEROL SULF 0.083% NEB SOLN 3 ML NEB NEB SCH ×5 (02:50→19:00)
[2018-11-17] MEDS: IPRATROPIUM BROMIDE 0.02% 2.5 ML NEB NEB SCH ×4 (02:50→19:00)
[2018-11-17] MEDS: CEFEPIME 1GM/NS 0.9% 50 ML 50 ML IV SCH ×3 (05:55→21:11)
[2018-11-17] MEDS: VANCOMYCIN 1GM/NS 250 ML 250 ML IV SCH ×2 (07:00→18:04)
--- NOTE | 2018-11-17 07:00 | NUR ---
RECEIVED BEDSIDE SHIFT REPORT FROM THE DIAGNOSTIC MEDICAL SONOGRAPHER RN. PT DENIES NEEDS AT THIS TIME.
[2018-11-17] MEDS: METHYLPREDNISOLONE SOD SUCC 40 MG/ML VIAL 1ML IV SCH (07:57)
[2018-11-17] MEDS: FAMOTIDINE 20 MG/2 ML VIAL IV SCH (08:23)
[2018-11-17] MEDS: NICOTINE 7 MG PATCH TOP SCH (09:00)
[2018-11-17] MEDS: TRAMADOL/APAP 37.5MG-325MG TAB PO PRN ×2 (10:08→21:12)
[2018-11-17] MEDS: GUAIFENESIN/CODEINE 10 ML CUP PO PRN ×2 (10:09→21:12)
--- NOTE | 2018-11-17 16:27 | Progress Note ---
DATE: Internal Medicine Progress Note SUBJECTIVE: The patient is doing well. No significant complaint. OBJECTIVE: VITAL SIGNS: Blood pressure 144/95, temperature 97.4, heart rate 82 per minute, respiratory rate 21 per minute, and oxygen saturation 100%. HEART: Showed regular rhythm. Normal S1, S2 sound. LUNGS: Clear bilaterally. No wheezing, no rhonchi, no rales. ABDOMEN: Soft. LABORATORY DATA: BMP, sodium 134, potassium 4.4, chloride 107, CO2 22, BUN 26, and creatinine 0.69. Glucose 134. CBC; white count 19,000, hemoglobin 11.9, hematocrit 34.9, and platelet count 189,000. AST 21 and ALT 14. Total bilirubin 0.4, alkaline phosphatase 39. ASSESSMENT: Chronic obstructive pulmonary disease exacerbation. PLAN: Continue albuterol and Atrovent q.4-6 hours as needed for shortness of breath, cefepime 2 g IV q.8 hours, we are going to discontinue vancomycin, continue Tylenol 650 mg p.o. q.6 hours as needed for pain or fever, Nicoderm patch 7 mg daily, Lovenox 40 mg subcutaneous daily, Zofran 4 mg IV q.4 hours as needed, prednisone 20 mg daily, continue Pepcid 20 mg daily, tramadol with acetaminophen 1 tablet q.6 hours as needed for pain, clonidine patch 0.1 mg q.7 days, and Guaifenesin with Codeine 5 mL q.4 hours as needed for cough. The patient is doing significantly better. Because of leukocytosis, we are going to repeat CBC tomorrow. Most likely due to Solu-Medrol, the patient has been switched to prednisone. She has no fever right now. Most likely tentative discharge tomorrow. MD SERA Tran/SONDRA /[id number]
[2018-11-17] MEDS: ENOXAPARIN SOD INJ 40 MG/0.4 ML SYR SC SCH (18:04)
--- NOTE | 2018-11-17 19:00 | NUR ---
BEDSIDE SHIFT REPORT GIVEN TO THE FLAT LOCKER RN. PT DENIED FURTHER NEEDS.
[2018-11-18] VITALS (8 sets, daily range): BP systolic 110–126; BP diastolic 66–72
[2018-11-18] MEDS: ALBUTEROL SULF 0.083% NEB SOLN 3 ML NEB NEB SCH ×5 (04:00→20:45)
[2018-11-18] MEDS: CEFEPIME 1GM/NS 0.9% 50 ML 50 ML IV SCH ×3 (05:42→22:16)
[2018-11-18 05:49] LABS: BASOPHILS # (AUTO) 0.1 (0.0-0.1); BASOPHILS % 0.7 % (0.0-1.0); EOSINOPHILS # (AUTO) 0.4 (0.0-0.4); EOSINOPHILS % 2.5 % (0.0-6.0); HEMATOCRIT 34.7 % (34.2-44.1); HEMOGLOBIN 11.4 g/dL (12.0-16.0); LYMPHOCYTES % 23.9 % (18.0-39.1); MEAN CORPUSCULAR HEMOGLOBIN 31.8 pg (28-32); MEAN CORPUSCULAR HGB CONC 32.9 g/dL (31-35); MEAN CORPUSCULAR VOLUME 96.9 fL (81-99); MONOCYTES # (AUTO) 1.8 (0.2-0.8); MONOCYTES % 10.5 % (4.4-11.3); NEUTROPHILS # (AUTO) 9.7 (2.1-6.9); NEUTROPHILS % 57.5 % (38.7-80.0); PLATELET COUNT 199 x10e3/uL (140-360); RED BLOOD COUNT 3.58 x10e6/uL (3.6-5.1); RED CELL DISTRIBUTION WIDTH 14.2 % (11.7-14.4)
[2018-11-18] MEDS: GUAIFENESIN/CODEINE 10 ML CUP PO PRN ×2 (05:51→22:30)
[2018-11-18] MEDS: VANCOMYCIN 1GM/NS 250 ML 250 ML IV SCH ×2 (06:24→18:25)
--- NOTE | 2018-11-18 07:30 | NUR ---
Pt received in bed. Aox4 and able to verbalize needs. Denies any pain at this time. Breaths are even and unlabored on room air at this time.
[2018-11-18] MEDS: IPRATROPIUM BROMIDE 0.02% 2.5 ML NEB NEB SCH ×4 (07:50→20:45)
[2018-11-18] MEDS: FAMOTIDINE 20 MG/2 ML VIAL IV SCH (08:27)
[2018-11-18] MEDS: AMLODIPINE BESYLATE 5 MG TAB PO SCH (08:35)
[2018-11-18] MEDS: NICOTINE 7 MG PATCH TOP SCH (08:35)
[2018-11-18] MEDS ORDERED: PREDNISONE 20 MG TAB PO SCH (09:00)
[2018-11-18] MEDS: TRAMADOL/APAP 37.5MG-325MG TAB PO PRN ×3 (09:28→22:30)
--- NOTE | 2018-11-18 18:47 | NUR ---
Pt in room ambulating in room without difficulties. Pt is aox4 and able to verbalize needs. Denies any pain at this time. Pt is on room air at this time. and denies SOB. Possible discharge tomorrow depending on labs and xray results as per Dr. Villagomez.
--- NOTE | 2018-11-18 19:23 | NUR ---
Patient received sitting up in bed. AAO x 4. No c/o pain. No signs of respiratory distress noted. Bed locked and in lowest position. Bed rails up x 2. Patient instructed to call for assistance when needed. Call light within reach.
--- NOTE | 2018-11-18 23:20 | NUR ---
IV infiltrated in left forearm. Old IV removed with tip intact. New IV inserted in right wrist 22G. Patient tolerated well.
[2018-11-19] MEDS: ALBUTEROL SULF 0.083% NEB SOLN 3 ML NEB NEB SCH ×4 (00:30→11:00)
[2018-11-19] MEDS: IPRATROPIUM BROMIDE 0.02% 2.5 ML NEB NEB SCH ×3 (00:30→11:00)
[2018-11-19 00:56] VITALS: BP 133/80
[2018-11-19 05:25] LABS: BASOPHILS % 0.2 % (0.0-1.0); EOSINOPHILS # (AUTO) 0.6 (0.0-0.4); EOSINOPHILS % 3.3 % (0.0-6.0); HEMATOCRIT 31.3 % (34.2-44.1); HEMOGLOBIN 10.7 g/dL (12.0-16.0); LYMPHOCYTES # (AUTO) 3.7 (1.0-3.2); LYMPHOCYTES % 22.1 % (18.0-39.1); MEAN CORPUSCULAR HEMOGLOBIN 31.8 pg (28-32); MEAN CORPUSCULAR HGB CONC 34.2 g/dL (31-35); MEAN CORPUSCULAR VOLUME 93.2 fL (81-99); MONOCYTES # (AUTO) 2.1 (0.2-0.8); MONOCYTES % 12.7 % (4.4-11.3); NEUTROPHILS # (AUTO) 9.6 (2.1-6.9); NEUTROPHILS % 57.1 % (38.7-80.0); PLATELET COUNT 205 x10e3/uL (140-360); RED BLOOD COUNT 3.36 x10e6/uL (3.6-5.1); RED CELL DISTRIBUTION WIDTH 14.2 % (11.7-14.4)
[2018-11-19] MEDS: CEFEPIME 1GM/NS 0.9% 50 ML 50 ML IV SCH (05:46)
[2018-11-19 05:52] LABS: ANION GAP 12.5 mmol/L (8-16); BLOOD UREA NITROGEN 14 mg/dL (7-26); BUN/CREATININE RATIO 21 (6-25); CALCIUM 8.1 mg/dL (8.4-10.2); CARBON DIOXIDE 25 mmol/L (22-29); CHLORIDE 104 mmol/L (98-107); CREATININE, SERUM 0.68 mg/dL (0.57-1.11); EST GLOMERULAR FILTRATION RATE > 60 ML/MIN (60-); GLUCOSE 92 mg/dL (74-118); POTASSIUM 3.5 mmol/L (3.5-5.1); SODIUM 138 mmol/L (136-145)
[2018-11-19 05:55] VITALS: BP 127/80
[2018-11-19] MEDS: VANCOMYCIN 1GM/NS 250 ML 250 ML IV SCH (06:47)
--- NOTE | 2018-11-19 06:55 | NUR ---
Patient resting comfortably. Shift report given to oncoming nurse for continuity of care.
--- NOTE | 2018-11-19 07:01 | Diagnostic Imaging Report ---
EXAMINATION: CHEST SINGLE (PORTABLE) INDICATION: ^pna ^[id number] ^[id number] COMPARISON: 11/12/2018 FINDINGS: AP view TUBES and LINES: None. Interval extubation and removal of nasogastric tube. LUNGS: Limited by body habitus. Lungs are well inflated. Mild retrocardiac opacification. PLEURA: No pneumothorax. HEART AND MEDIASTINUM: The cardiomediastinal silhouette is unremarkable. BONES AND SOFT TISSUES: No acute osseous lesion. Soft tissues are unremarkable. UPPER ABDOMEN: No free air under the diaphragm. IMPRESSION: Mild retrocardiac opacification, representing atelectasis, small effusion, or pneumonia in the appropriate clinical context. Signed by: Dr. Adrian Yan MD on 11/19/2018 6:58 AM
[2018-11-19 07:48] VITALS: BP 125/81
[2018-11-19 08:00] VITALS: BP 125/81
[2018-11-19] MEDS: AMLODIPINE BESYLATE 5 MG TAB PO SCH (08:44)
[2018-11-19] MEDS: FAMOTIDINE 20 MG/2 ML VIAL IV SCH (08:44)
[2018-11-19] MEDS: NICOTINE 7 MG PATCH TOP SCH (08:44)
[2018-11-19] MEDS: TRAMADOL/APAP 37.5MG-325MG TAB PO PRN (08:45)
[2018-11-19] MEDS ORDERED: PREDNISONE 20 MG TAB PO SCH (09:00)
[2018-11-19] MEDS ORDERED: PREDNISONE 10 MG TAB PO SCH (09:00)
[2018-11-19] MEDS: CLONIDINE HCL 0.1 MG/24 HR 1 EA PATCH TOP SCH (11:27)
[2018-11-19] MEDS ORDERED: LISINOPRIL10 MG PO (11:59)
[2018-11-19] MEDS ORDERED: CEFUROXIME250 MG PO (12:01)
[2018-11-19] MEDS ORDERED: PREDNISONE10 MG PO (12:01)
[2018-11-19] MEDS ORDERED: AZITHROMYCIN250 MG PO (12:01)
[2018-11-19 12:06] VITALS: BP 126/74
--- NOTE | 2018-11-19 12:30 | NUR ---
Pt discharged at this time. Pt is aox3 and able to verbalize needs. Pt denies any pain at this time. Pt verbalized understanding of discharge instructions and follow up appt. Pt left by wheelchair in private car.
== END 2018-11-19 12:31 | disposition home or self-care (01) | DRG 871 ==
LOC: ER 15:03 → ERHOLD 19:55 → ICU 20:15 → MED/SURG2 11-14 12:35
PROC: 0BH17EZ Insertion of Endotracheal Airway into Trachea, Via Natural or Artificial Opening (ICD-10-PCS; principal; 2018-11-10)
PROC: 5A1945Z Respiratory Ventilation, 24-96 Consecutive Hours (ICD-10-PCS; 2018-11-11)
DX: A41.9 Sepsis, unspecified organism (principal); J18.1 Lobar pneumonia, unspecified organism; J96.00 Acute respiratory failure, unspecified whether with hypoxia or hypercapnia; J44.0 Chronic obstructive pulmonary disease with (acute) lower respiratory infection; J45.901 Unspecified asthma with (acute) exacerbation; J44.1 Chronic obstructive pulmonary disease with (acute) exacerbation; N17.9 Acute kidney failure, unspecified; F17.200 Nicotine dependence, unspecified, uncomplicated; E78.5 Hyperlipidemia, unspecified; E66.01 Morbid (severe) obesity due to excess calories; Z68.38 Body mass index [BMI] 38.0-38.9, adult
CPT/HCPCS: 31500; 36415; 36600; 71045; 71250; 71260; 80048; 80053; 80202; 82550; 82553; 82805; 83605; 83880; 84484; 85025; 87040; 87070; 87205; 93005; 93306; 94002; 94003; 94640; 94660; 96361; 97139; 99285; J0330; J0456; J0692; J0696; J1650; J1885; J1940; J2060; J2405; J2920; J2930; J3370; J3475; J7030; J7050; J7512; Q9967